=== PATIENT | male | born 1965 | race Caucasian/White ===

== ENCOUNTER 2017-06-20 19:24 | Emergency (ER) | payer BC ==
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
[2017-06-20] MEDS ORDERED: Ibuprofen TAB* 600 MG PO ONE (21:37)
[2017-06-20] MEDS ORDERED: Lidocaine 2% W/EPI 1:100,000* 20 ML MDV INJ ONE (21:49)
[2017-06-20] MEDS ORDERED: Cephalexin CAP* 500 MG PO ONE (22:43)
== END 2017-06-20 22:57 | disposition home or self-care (01) ==
LOC: EDBD → UCCORT 19:24
DX: S81.012A Laceration without foreign body, left knee, initial encounter (principal); Z88.3 Allergy status to other anti-infective agents; V19.3XXA Pedal cyclist (driver) (passenger) injured in unspecified nontraffic accident, initial encounter; Y92.838 Other recreation area as the place of occurrence of the external cause
CPT/HCPCS: 12001; 99202; A9270-GY; G0463